=== PATIENT | female | born 1995 | race Caucasian/White ===

== ENCOUNTER 2016-05-24 21:40 | Emergency (ER) | payer OTHER ==
[2016-05-24] MEDS ORDERED: PROCHLORPERAZINE INJ 5 MG/ML 2 ML VIAL IV ONE (22:20)
[2016-05-24] MEDS ORDERED: Ketorolac INJ* 30 MG/ML 1 ML VIAL IV PUSH ONE (22:20)
[2016-05-24] MEDS ORDERED: diPHENhydraMINE IV* 50 MG/ML 1 ml VIAL (BENADRYL) IV ONE (22:20)
--- NOTE | 2016-05-24 22:23 | ED ---
Headache - HPI Summary HPI Summary: 20F presents with headache for 3 days. States believes it is a migraine but does not have a history of migraines. Headache started in middle of forehead and has since wrapped around head. has light sensitivity. denies any nausea, sinus congestion or fevers. Was seen in [facility] yesterday and given migraine cocktail which resolved headache but it came back this morning. has been taking ibuprofen and Tylenol without relief. - History Of Current Complaint Chief Complaint: EDHeadache Stated Complaint: MIGRAINE Time Seen by Provider: 05/24/16 22:10 Hx Last Menstrual Period: 12/29/15 - Allergies/Home Medications Allergies/Adverse Reactions: Allergies Allergy/AdvReac Type Severity Reaction Status Date / Time No Known Allergies Allergy Verified 05/24/16 21:45 PMH/Surg Hx/FS Hx/Imm Hx Endocrine/Hematology History: Denies: Hx Diabetes, Hx Thyroid Disease Cardiovascular History: Denies: Hx Hypertension Respiratory History: Denies: Hx Asthma, Hx Chronic Obstructive Pulmonary Disease (COPD) GI History: Denies: Hx Ulcer Musculoskeletal History: Reports: Hx Back Problems Psychiatric History: Reports: Hx Attention Deficit Hyperactivity Disorder, Hx Depression, Hx Suicide Attempt - first time this admission 12/29/13 Denies: Hx Eating Disorder, Hx of Violent Episodes Against Others - Surgical History Surgery Procedure, Year, and Place: Tonsillectomy Dec 2012. Infectious Disease History: No Infectious Disease History: Denies: Hx Hepatitis, Hx Human Immunodeficiency Virus (HIV), Traveled Outside the [place] in Last 30 Days - Family History Known Family History: Positive: Other - mother has migraines. Negative: Cardiac Disease, Renal Disease - Social History Alcohol Use: Rare Substance Use Type: Reports: None Smoking Status (MU): Light Every Day Tobacco Smoker Type: Cigarettes Amount Used/How Often: 1 PPD Length of Time of Smoking/Using Tobacco: SINCE 2005 Have You Smoked in the Last Year: Yes Review of Systems Negative: Fever Positive: Photophobia. Negative: Blurred Vision Negative: Chest Pain Negative: Shortness Of Breath Positive: Headache All Other Systems Reviewed And Are Negative: Yes Physical Exam Triage Information Reviewed: Yes Vital Signs On Initial Exam: Initial Vitals Temp Pulse Resp BP Pulse Ox 98 F 92 18 126/80 99 05/24/16 21:44 05/24/16 21:44 05/24/16 21:44 05/24/16 21:44 05/24/16 21:44 Vital Signs Reviewed: Yes Appearance: Positive: Well-Appearing Skin: Positive: Warm, Dry Head/Face: Positive: Normal Head/Face Inspection Eyes: Positive: Normal, EOMI, MANOHAR, Conjunctiva Clear ENT: Positive: Normal ENT inspection, Pharynx normal, TMs normal Respiratory/Lung Sounds: Positive: Clear to Auscultation, Breath Sounds Present Cardiovascular: Positive: Normal, RRR Neurological: Positive: Sensory/Motor Intact, Alert, Oriented to Person Place, Time, CN Intact II-III - Corky Coma Scale Best Eye Response: 4 - Spontaneous Best Motor Response: 6 - Obeys Commands Best Verbal Response: 5 - Oriented Diagnostics - Vital Signs Vital Signs Temp Pulse Resp BP Pulse Ox 05/24/16 22:09 98.7 F 81 16 133/87 98 05/24/16 21:44 98 F 92 18 126/80 99 - Laboratory Result Diagrams: 05/24/16 22:40 05/24/16 22:40 Lab Statement: Any lab studies that have been ordered have been reviewed, and results considered in the medical decision making process. Re-Evaluation - Re-Evaluation First Eval Re-Evaluation Time: 23:29 Change: Improved Comment: feeling better Second Eval Re-Evaluation Time: 23:44 Change: Improved Comment: wants to go home Headache Course/Dx - Course Course Of Treatment: 20F presents with headache for 3 days. denies history of headache. admits to light senstivity. given migraine cocktail at [facility] yesterday that resolved symptoms but came back today. never had imgaging of head so did CT which was normal. labs normal. gave migraine cocktail and headache resolved. told try excedrin next time to see if that will work and establish care with primary. patient understands and agrees with plan - Diagnoses Differential Diagnosis/HQI/PQRI: Migraine, Sinus Headache, Tension Headache Provider Diagnoses: Headache Discharge - Discharge Plan Condition: Good Disposition: HOME Patient Education Materials: General Headache (ED) Referrals: [facility] [place] [facility]ERR[facility] [Outside] Additional Instructions: Take Tylenol or ibuprofen every 6 hours for headache as needed Establish care with primary care physician Return to ED if develop any new or worsening symptoms
--- NOTE | 2016-05-24 22:49 | RAD ---
Indication: Migraine headaches. CT of the brain was performed without IV contrast. Ventricular structures are midline. No midline shift is noted. The extra-axial spaces are unremarkable. There is no evidence of intracranial mass or hemorrhage. No other high or low density lesions are identified. Mastoid air cells and paranasal sinuses are unremarkable. No change is noted since March 18, 2014. IMPRESSION: No intracranial mass or hemorrhage is noted.
[2016-05-24 23:00] LABS: Hematocrit 43 % (35-47); Hemoglobin 14.7 g/dl (12.0-16.0); Mean Corpuscular HGB Conc 34 g/dl (31-36); Mean Corpuscular Hemoglobin 30 pg (27-31); Mean Corpuscular Volume 89 fL (80-97); Mean Platelet Volume 9 um3 (7.4-10.4); Red Blood Count 4.84 10^6/ul (4.0-5.4); Red Cell Distribution Width 13 % (10.5-15); White Blood Count 8.1 10^3/ul (3.5-10.8)
[2016-05-24 23:15] LABS: ALT 16 U/L (7-52); AST 11 U/L (13-39); Alkaline Phosphatase 47 U/L (34-104); Anion Gap 5 mmol/L (2-11); BUN/Creatinine Ratio 23.9 (8-20); Blood Urea Nitrogen 17 mg/dL (6-24); CO2 Carbon Dioxide 25 mmol/L (22-32); Calcium 9.2 mg/dL (8.6-10.3); Chloride 106 mmol/L (101-111); EGFR African American 133.6 (>60); EGFR Non-African American 103.9 (>60); Globulin 2.6 g/dL (2-4); Glucose 82 mg/dL (70-100); Sodium 136 mmol/L (133-145); Total Protein 6.6 g/dL (6.4-8.9)
[2016-05-25 00:04] VITALS: BP 152/65
== END 2016-05-25 00:01 | disposition home or self-care (01) ==
LOC: ED 21:40
DX: R51 Headache (principal); H53.149 Visual discomfort, unspecified; F17.210 Nicotine dependence, cigarettes, uncomplicated
CPT/HCPCS: 36415; 70450; 80053; 84702; 85025; 96374; 96375; 99282; J0780; J1200; J1885

== ENCOUNTER 2016-07-23 13:22 | Emergency (ER) | payer OTHER ==
[2016-07-23 13:37] VITALS: BP 128/77
[2016-07-23] MEDS ORDERED: cefTRIAXone VIAL(*) 1,000 MG VIAL IM ONE (14:01)
[2016-07-23] MEDS ORDERED: Lidocaine 1% MPF* 2 ML VIAL INJ ONE (14:01)
[2016-07-23] MEDS ORDERED: DOXYcycline CAP(*) 100 MG PO ONE (14:03)
--- NOTE | 2016-07-23 14:15 | UC ---
Complaint Female HPI - HPI Summary HPI Summary: patient has had increased discomfort and pain in the perineum, she states she used a different body wash and thinks it irritated the area. she has had unprotected sex and has had STD's in the past. she is very uncomfortable and cannot sit due to pain. - History Of Current Complaint Chief Complaint: UCGU Stated Complaint: PERSONAL Time Seen by Provider: 07/23/16 13:31 Hx Last Menstrual Period: pt states not getting a menses d/t having implanon - Allergies/Home Medications Allergies/Adverse Reactions: Allergies Allergy/AdvReac Type Severity Reaction Status Date / Time No Known Allergies Allergy Verified 07/23/16 13:37 Home Medications: Home Medications Etonogestrel IMPLANT(NF) [Implanon (NF)-not available] 68 mg IMPLANT DAILY 07/23 [History Confirmed 07/23/16] PMH/Surg Hx/FS Hx/Imm Hx Previously Healthy: Yes - Surgical History Surgical History: Yes Surgery Procedure, Year, and Place: Tonsillectomy Dec 2012. x1 - Family History Known Family History: Positive: Other - mother has migraines. Negative: Cardiac Disease, Renal Disease - Social History Alcohol Use: Rare Substance Use Type: None Smoking Status (MU): Heavy Every Day Tobacco Smoker Type: Cigarettes Amount Used/How Often: 1 PPD Length of Time of Smoking/Using Tobacco: SINCE age 13 Have You Smoked in the Last Year: Yes Household Exposure Type: Cigarettes - Immunization History Most Recent Influenza Vaccination: [id number] Most Recent Tetanus Shot: unk Most Recent Pneumonia Vaccination: never Vaccination Up to Date: Yes Review of Systems Constitutional: Negative Skin: Rash Eyes: Negative ENT: Negative Respiratory: Negative Cardiovascular: Negative Genitourinary: Other - vaginal dischrage Motor: Negative Neurovascular: Negative Musculoskeletal: Negative Neurological: Negative Psychological: Negative All Other Systems Reviewed And Are Negative: Yes Physical Exam Triage Information Reviewed: Yes Appearance: Ill-Appearing, Pain Distress, Obese Vital Signs: Initial Vital Signs Temp 97.1 F 07/23/16 13:30 Pulse 103 07/23/16 13:30 Resp 16 07/23/16 13:30 BP 128/77 07/23/16 13:30 Pulse Ox 100 07/23/16 13:30 Vital Signs Reviewed: Yes Eye Exam: Normal Eyes: Positive: Conjunctiva Clear ENT Exam: Normal Dental Exam: Normal Neck exam: Normal Respiratory Exam: Normal Cardiovascular: Positive: No Murmur, Pulses Normal, Tachycardia Abdomen Description: Positive: No Organomegaly, Soft, CVA Tenderness (R) - neg, CVA Tenderness (L) - neg, Other: - PELVIC EXAM: copious amount or purulent greenish yellow discharge, severe pain with insertion of the speculum, met resistance of a firm, inflammed cervix, bloody drainage noted on swabs, + cervical motion tenderness. exterior, no blisters noted, large inflammed area of fungal lesions around the groin and inner thight. Bowel Sounds: Positive: Present Musculoskeletal Exam: Normal Musculoskeletal: Positive: Strength Intact, ROM Intact, No Edema Neurological Exam: Normal Neurological: Positive: Alert, Muscle Tone Normal Psychological Exam: Normal Skin Exam: Normal Complaint Female Dx - Course Course Of Treatment: hx obtained, exam performed, meds reviewed, perlivc exam performed, culutres obtained, treated for PID. - Differential Dx/Diagnosis Differential Diagnosis/HQI/PQRI: Cervicitis, Ectopic, Ovarian Cyst, Pelvic Inflammatory Disease, Sexually Transmitted Disease, Ureteral Stone, Urinary Tract Infection Provider Diagnoses: PID. tinea corporis. possible STD's. tachycardia Discharge - Discharge Plan Condition: Stable Disposition: HOME Prescriptions: DOXYcycline CAP(*) [DOXYcycline 100MG CAP(*)] 100 mg PO BID #27 cap Patient Education Materials: Pelvic Inflammatory Disease (ED) Additional Instructions: 1. take the medication as prescribed. 2. Increase fluid intake 3. I recommend soaking in the tub to relieve the pain 4. take all the medication 5. we will call with the results of your cultures. 6. I recommend follow up with your SALES AND MARKETING ASSOCIATE, if you do not have a SALES AND MARKETING ASSOCIATE I have given a referral number to the [facility] here in [place]. 7. Your fungal infecttion on the groin and inner thigh can be treated with coconut oil twice a day. or with Clotrimezole cream which i have prescribed.
== END 2016-07-23 14:47 | disposition home or self-care (01) ==
LOC: UCCORT 13:22
DX: N73.9 Female pelvic inflammatory disease, unspecified (principal); B35.4 Tinea corporis; R00.0 Tachycardia, unspecified; Z11.3 Encounter for screening for infections with a predominantly sexual mode of transmission; E66.9 Obesity, unspecified; F17.210 Nicotine dependence, cigarettes, uncomplicated
CPT/HCPCS: 87480; 87491; 87510; 87591; 87660; 87661; 96372; 99212; A9270-GY; G0463; J0696

== ENCOUNTER 2017-05-10 15:12 | Emergency (ER) | payer OTHER ==
[2017-05-10 15:46] VITALS: BP 111/57
--- NOTE | 2017-05-10 16:06 | UC ---
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 denies being , has implonon. no fevers or chills. no drainage or streaks. - History of Current Complaint Chief Complaint: UCSkin Time Seen by Provider: 05/10/17 15:51 Stated Complaint: RT HAND RING FINGER COMPLAINT Hx Last Menstrual Period: IMPLANON Pain Intensity: 8 - Allergy/Home Medications Allergies/Adverse Reactions: Allergies Allergy/AdvReac Type Severity Reaction Status Date / Time Penicillins AdvReac Vomiting Verified 05/10/17 15:38 Home Medications: Home Medications Escitalopram Oxalate [Lexapro 10 mg] 10 mg PO DAILY 05/10/17 [History Confirmed 05/10/17] traZODone TAB* [Desyrel TAB*] 50 mg PO BEDTIME 05/10/17 [History Confirmed 05/10] Review of Systems Constitutional: Negative Skin: Other - redness and purulence 4th digit Eyes: Negative ENT: Negative Respiratory: Negative Cardiovascular: Negative Gastrointestinal: Negative Genitourinary: Negative Motor: Negative Neurovascular: Negative Musculoskeletal: Negative Neurological: Negative Psychological: Negative Is Patient Immunocompromised?: No All Other Systems Reviewed And Are Negative: Yes PMH/Surg Hx/FS Hx/Imm Hx Previously Healthy: Yes - Surgical History Surgical History: Yes Surgery Procedure, Year, and Place: Tonsillectomy Dec 2012. x1 - Family History Known Family History: Positive: Other - mother has migraines. Negative: Cardiac Disease, Renal Disease - Social History Alcohol Use: Rare Substance Use Type: None Smoking Status (MU): Heavy Every Day Tobacco Smoker Type: Cigarettes Amount Used/How Often: 1 PPD Length of Time of Smoking/Using Tobacco: SINCE age 13 Have You Smoked in the Last Year: Yes Household Exposure Type: Cigarettes - Immunization History Most Recent Influenza Vaccination: [id number] Most Recent Tetanus Shot: unk Most Recent Pneumonia Vaccination: never Vaccination Up to Date: Yes Physical Exam Triage Information Reviewed: Yes Appearance: No Pain Distress, Well-Nourished Vital Signs: Initial Vital Signs Temp 99 F 05/10/17 15:40 Pulse 75 05/10/17 15:40 Resp 24 05/10/17 15:40 BP 111/57 05/10/17 15:40 Pulse Ox 99 05/10/17 15:40 Eye Exam: Normal ENT: Positive: Pharynx normal Neck exam: Normal Respiratory: Positive: Lungs clear, Normal breath sounds, No respiratory distress, No accessory muscle use Cardiovascular Exam: Normal Cardiovascular: Positive: RRR, No Murmur Abdomen Description: Positive: Nontender, Soft Musculoskeletal Exam: Normal Neurological Exam: Normal Psychological Exam: Normal Skin: Positive: Other - right 4th radial paranichial area with mild-mod erythema and purulent collection. but there is no drainage or streaks. mildly tender. Course/Dx - Differential Diagnoses - Skin Complaint Differential Diagnoses: Abscess, Cellulitis - Diagnoses Provider Diagnoses: rt 4th digit paranichial infection Discharge - Sign-Out/Discharge Documenting (check all that apply): Discharge - Discharge Plan Condition: Stable Disposition: HOME Prescriptions: Sulfamethox/Trimethoprim DS* [Bactrim DS 800/160 TAB*] 1 tab PO BID 10 Days #20 tab Patient Education Materials: Cellulitis (ED) Referrals: No Primary Care Phys,NOPCP [Primary Care Provider] - Additional Instructions: -Make sure to take a probiotic daily while on antibiotics to help prevent a potential complication of antibiotic use called c diff. Some well known brands that can be found OTC are floraUprizer Labsor, [employer] and NanoPack. Make sure to complete the entire prescription unless advised otherwise by your health care provider. -You should follow up with your primary care provider in 3 days. You should be seen sooner if the infections worsens. - Billing Disposition and Condition Condition: STABLE Disposition: HOME
== END 2017-05-10 16:19 | disposition home or self-care (01) ==
LOC: UCCORT 15:12
DX: L08.9 Local infection of the skin and subcutaneous tissue, unspecified (principal); F17.210 Nicotine dependence, cigarettes, uncomplicated; Z88.0 Allergy status to penicillin
CPT/HCPCS: 99212; G0463